=== PATIENT | male | born 1955 | race Caucasian/White ===

== ENCOUNTER → 2017-02-13 | Outpatient (CLI) | payer BC ==
--- NOTE | 2017-02-13 10:12 | REP ---
MAXILLOFACIAL CT WITHOUT CONTRAST: HISTORY: Chronic sinusitis. The uncinate processes are incompletely seen. This may be due to previous surgery or demineralization secondary to chronic sinusitis. Minimal mucosal thickening is present in the ethmoid, maxillary and left frontal sinuses. The remaining sinuses are clear. Mucosal thickening involves the ostiomeatal units. The middle and inferior nasal turbinates are partially paradoxical. There is mild deviation of the nasal septum to the right. The nasal septum abuts the right inferior nasal turbinate. The cribriform plate, medial serna of the orbits and optic canals are intact. The carotid canals form a segment of the posterolateral serna of the sphenoid sinus. IMPRESSION: Sinus mucosal thickening as described above. Signed by Dakota Sherman MD 02/13/2017 10:13 A
== END ==
LOC: M RAD 09:27
PROVIDERS: ATTEND Otolaryngology
DX: J32.4 Chronic pansinusitis (principal)

== ENCOUNTER → 2017-05-01 | Outpatient (CLI) | payer BC ==
--- NOTE | 2017-05-01 11:52 | REP ---
MR BRAIN WITHOUT AND WITH CONTRAST: HISTORY: Bilateral hearing loss. CONTRAST: ProHance 14 mL. Scattered punctate areas of increased signal intensity on T2-weighted images are present in the periventricular and subcortical white matter. This represents small vessel ischemic disease. There is no intraparenchymal hemorrhage, infarct, mass, or midline shift. There is no abnormal enhancement. The ventricular system is normal in appearance. There is no extracerebral collection. There is no cerebellopontine angle mass. The inner ear structures are normal in appearance. The mastoid air cells are clear. Minimal mucosal thickening is present in the maxillary sinuses. IMPRESSION: Minimal small vessel ischemic disease. Signed by Dakota Sherman MD 05/01/2017 12:02 P
== END ==
LOC: M RAD 09:14
PROVIDERS: ATTEND Otolaryngology
DX: H90.3 Sensorineural hearing loss, bilateral (principal); I67.89 Other cerebrovascular disease
CPT/HCPCS: 70553; A9576

== ENCOUNTER → 2022-10-29 | Outpatient (CLI) | payer MEDICARE ==
[~2022-10-29] MED LIST: ATOR1TAB19 PO; CAPE1TAB2 PO; LISI20TA33 PO; TAMS1CAP17 PO
== END ==
LOC: M ONCR 13:27
PROVIDERS: ATTEND Specialist
DX: C20 Malignant neoplasm of rectum (principal); F17.210 Nicotine dependence, cigarettes, uncomplicated; K58.9 Irritable bowel syndrome, unspecified; M19.90 Unspecified osteoarthritis, unspecified site; Z79.899 Other long term (current) drug therapy; Z80.0 Family history of malignant neoplasm of digestive organs; Z85.46 Personal history of malignant neoplasm of prostate; Z92.3 Personal history of irradiation

== ENCOUNTER → 2022-12-05 | Outpatient (RCR) | payer MEDICARE | LOC: M ONCR 11-10 10:18 | PROVIDERS: ATTEND General Practice | DX: C20 Malignant neoplasm of rectum (principal) ==

== ENCOUNTER 2022-12-31 09:38 | Outpatient (RCR) | payer MEDICARE ==
[~2022-12-31 09:38] MED LIST changes: +LIDO4CRE4 TOP
== END 2023-01-04 ==
LOC: M ONCR 09:38
PROVIDERS: ATTEND General Practice
DX: C20 Malignant neoplasm of rectum (principal)

== ENCOUNTER → 2023-01-12 | Outpatient (CLI) | payer MEDICARE ==
[~2023-01-12] VITALS: Ht 180.3 cm; Wt 64.0 kg
[~2023-01-12] MED LIST changes: +GINK60TA2 PO; +GINS100C PO; +LIDOCAINE 1% MDV 20ML VIAL As Ordered ONE; +MIDAZOLAM INJ 2MG/2ML VIAL As Ordered ONE; +NS 1,000 ML IV SCH; +OMEG10002 PO; +RA T500C2 PO; +VITA-243 PO; +VITAD400CA PO; +ZINC220CA PO; +ceFAZolin 2 GM/D5W 50 ML IV BAG As Ordered ONE; +ceFAZolin SOD 2 GM in IV 1 EA IV ONE; +diphenhydrAMINE 50MG/ML VIAL As Ordered ONE; +fentaNYL 100 MCG/2 ML INJECTION As Ordered ONE
[2023-01-12 16:05] VITALS: BP 136/78
== END ==
LOC: M IRPRO 12:24
PROVIDERS: ATTEND Internal Medicine Hematology & Oncology
DX: C20 Malignant neoplasm of rectum (principal)
CPT/HCPCS: 36561; 99152; 99153; C1769; C1788; C1894; J0690; J1200; J2250; J3010

== ENCOUNTER → 2023-01-27 | Outpatient (POV) | payer MEDICARE ==
[~2023-01-27] VITALS: Ht 182.9 cm; Wt 63.6 kg
[~2023-01-27] MED LIST changes: +LIDO1CRE42 TOP; -LIDOCAINE 1% MDV 20ML VIAL As Ordered ONE; -MIDAZOLAM INJ 2MG/2ML VIAL As Ordered ONE; -NS 1,000 ML IV SCH; +ONDA8TAB8 PO; +PROC10TA5 PO; +SAW1CAP3 PO; -ceFAZolin 2 GM/D5W 50 ML IV BAG As Ordered ONE; -ceFAZolin SOD 2 GM in IV 1 EA IV ONE; -diphenhydrAMINE 50MG/ML VIAL As Ordered ONE; -fentaNYL 100 MCG/2 ML INJECTION As Ordered ONE
[2023-01-27 13:45] VITALS: BP 141/81
== END ==
LOC: M IRPOV 13:33
PROVIDERS: ATTEND Radiology Diagnostic Radiology
DX: Z45.2 Encounter for adjustment and management of vascular access device (principal); Z88.1 Allergy status to other antibiotic agents

== ENCOUNTER → 2023-07-01 | Outpatient (CLI) | payer MEDICARE ==
[~2023-07-01] MED LIST changes: -LIDO1CRE42 TOP; +LIDO30CR18 TOP; +LISI10TA22 PO; +VITA250T7 PO
== END ==
LOC: M ONCR 09:28
PROVIDERS: ATTEND General Practice
DX: C20 Malignant neoplasm of rectum (principal); Z85.46 Personal history of malignant neoplasm of prostate; F17.210 Nicotine dependence, cigarettes, uncomplicated; Z71.2 Person consulting for explanation of examination or test findings; Z79.899 Other long term (current) drug therapy; Z88.1 Allergy status to other antibiotic agents; Z92.21 Personal history of antineoplastic chemotherapy; Z92.3 Personal history of irradiation

== ENCOUNTER → 2023-10-26 | Outpatient (CLI) | payer MEDICARE ==
[2023-10-26 14:57] LABS: BLOOD UREA NITROGEN 10 MG/DL (9-23); CREATININE FOR GFR 0.55 MG/DL (0.70-1.30); GLOMERULAR FILTRATION RATE > 60.0 (>49)
== END ==
LOC: M LAB 13:41
PROVIDERS: ATTEND Surgery
DX: C20 Malignant neoplasm of rectum (principal)

== ENCOUNTER → 2023-10-28 | Outpatient (CLI) | payer MEDICARE ==
[~2023-10-28] MED LIST changes: +GASTROGRAFIN SOLUTION 30ML As Ordered ONE; +ISOVUE-370 76% 100ML VIAL As Ordered ONE
== END ==
LOC: M RAD 13:38
PROVIDERS: ATTEND Surgery
DX: C20 Malignant neoplasm of rectum (principal)
CPT/HCPCS: 71260; 74177; Q9963; Q9967

== ENCOUNTER → 2023-10-30 | Outpatient (CLI) | payer MEDICARE ==
[~2023-10-30] MED LIST changes: -GASTROGRAFIN SOLUTION 30ML As Ordered ONE; -ISOVUE-370 76% 100ML VIAL As Ordered ONE
[2023-10-30 10:18] LABS: BLOOD UREA NITROGEN 9 MG/DL (9-23); CALCIUM LEVEL 8.7 MG/DL (8.3-10.6); CARBON DIOXIDE LEVEL 30 MMOL/L (20-31); CHLORIDE LEVEL 99 MMOL/L (98-107); CREATININE FOR GFR 0.57 MG/DL (0.70-1.30); GLOMERULAR FILTRATION RATE > 60.0 (>49); GLUCOSE, FASTING 101 MG/DL (74-106); MAGNESIUM LEVEL 1.9 MG/DL (1.8-2.4); PHOSPHORUS LEVEL 3.1 MG/DL (2.4-5.1); POTASSIUM SERUM 4.4 MMOL/L (3.5-5.1); SODIUM LEVEL 131 MMOL/L (136-145)
== END ==
LOC: M LAB 09:03
PROVIDERS: ATTEND Surgery
DX: C20 Malignant neoplasm of rectum (principal)

== ENCOUNTER → 2024-10-13 | Outpatient (CLI) | payer MEDICARE ==
[~2024-10-13] MED LIST changes: +ISOVUE-370 76% 100ML VIAL ONE; -LIDO4CRE4 TOP; +LIDO5CRE7 TOP; +ONDA-284 PO; -ONDA8TAB8 PO
== END ==
LOC: M PLAIMG 09:21
PROVIDERS: ATTEND Surgery
DX: K43.9 Ventral hernia without obstruction or gangrene (principal)
CPT/HCPCS: 74177; Q9967

== ENCOUNTER → 2025-01-04 | Outpatient (CLI) | payer MEDICARE ==
[~2025-01-04] MED LIST changes: +SAW160CA22 PO; -SAW1CAP3 PO
== END ==
LOC: M PLAIMG 08:26
PROVIDERS: ATTEND Nurse Practitioner Family
DX: C20 Malignant neoplasm of rectum (principal)
CPT/HCPCS: 71260; 74177; Q9967

== ENCOUNTER 2025-03-23 06:12 | Inpatient (IN) | payer MEDICARE ==
[~2025-03-23] VITALS: Ht 180.3 cm; Wt 76.5 kg
[~2025-03-23 06:12] MED LIST changes: +ACET32TAB PO; +ELIQ5TAB PO; -ISOVUE-370 76% 100ML VIAL ONE; +METO25TA4 PO; -RA T500C2 PO; +ROSU5TAB49 PO; +TURM500C10 PO
[2025-03-23] MEDS ORDERED: LIDOCAINE 2% 100 MG/5 ML SDV (FOR ANES.) As Ordered ONE (07:16)
[2025-03-23] MEDS ORDERED: ROCURONIUM BROMIDE 50MG/5ML VIAL As Ordered ONE (07:16)
[2025-03-23] MEDS ORDERED: MIDAZOLAM INJ 2 MG/2 ML VIAL As Ordered ONE (07:16)
[2025-03-23] MEDS: ceFAZolin SOD 2 GM IV ONCE IV ONE (08:01)
[2025-03-23] MEDS ORDERED: dexAMETHasone 4 MG/ML 1 ML VIAL As Ordered ONE (08:01)
[2025-03-23] MEDS ORDERED: PHENYLephrine 500MCG 5ML (100MCG/ML) SYRINGE As Ordered ONE (08:03)
[2025-03-23] MEDS ORDERED: HYDROmorphone HCL 2 MG/ML 1 ML VIAL As Ordered ONE (09:31)
[2025-03-23] MEDS ORDERED: ACETAMINOPHEN 1000MG/100ML IV BAG As Ordered ONE (09:49)
[2025-03-23] MEDS ORDERED: ACET-683 PO (09:58)
[2025-03-23] MEDS ORDERED: HOME MED LIST COMPLETE! XX SCH (10:00)
[2025-03-23] MEDS ORDERED: PHENYLEPHRINE 10MG/ML 1ML VIAL As Ordered ONE (10:14)
[2025-03-23] MEDS ORDERED: ONDANSETRON 4MG 2ML VIAL As Ordered ONE (12:00)
[2025-03-23] MEDS ORDERED: SUGAMMADEX SODIUM 200 MG/2 ML VIAL As Ordered ONE (14:28)
[2025-03-23] MEDS: ONDANSETRON 4MG 2ML VIAL IV PRN (16:08)
[2025-03-23] MEDS ORDERED: diphenhydrAMINE 50 MG/ML VIAL IV PRN (16:25)
[2025-03-23] MEDS ORDERED: MEPERIDINE 25 MG/ML 1 ML VIAL IV PRN (16:25)
[2025-03-23] MEDS ORDERED: ONDANSETRON 4MG 2ML VIAL IV PRN (16:40)
[2025-03-23] MEDS ORDERED: KETOROLAC 30 MG/ML 1 ML VIAL IV PRN (16:40)
[2025-03-23] MEDS ORDERED: MORPHINE 2 MG/ML 1 ML VIAL IV PRN (16:40)
[2025-03-23] MEDS: hydrALAZINE 20 MG/ML 1 ML VIAL IV PRN (17:01)
[2025-03-23] MEDS: KCL 20MEQ IN D5/0.45NS 1000ML 1,000 ML IV SCH (17:25)
[2025-03-23] MEDS: MORPHINE 2 MG/ML 1 ML VIAL IV ONE (18:04)
[2025-03-23 18:06] LABS: BASO # 0.0 10^3/uL (0.0-0.2); BASO % 0.3 % (0.0-1.0); EOS # 0.0 10^3/uL (0.0-0.5); EOS % 0.1 % (0.0-3.0); LYMPH # 0.7 10^3/uL (1.5-5.0); LYMPH % 6.0 % (24.0-44.0); MONO # 0.6 10^3/uL (0.0-0.8); MONO % 4.9 % (2.0-8.0); NEUTROPHILS # 10.1 10^3/uL (1.5-8.5); NEUTROPHILS % 88.2 % (36.0-66.0); PLATELET COUNT, AUTOMATED 219 10^3/uL (150-450)
[2025-03-23 18:15] VITALS: BP 151/71; TEMP 97.7; O2SAT 87
[2025-03-23 18:33] LABS: CALCIUM LEVEL 8.3 MG/DL (8.3-10.6); CARBON DIOXIDE LEVEL 27 MMOL/L (20-31); CHLORIDE LEVEL 102 MMOL/L (98-107); CREATININE FOR GFR 0.65 MG/DL (0.70-1.30); GLOMERULAR FILTRATION RATE > 90.0 (>42); POTASSIUM SERUM 4.9 MMOL/L (3.5-5.1); SODIUM LEVEL 139 MMOL/L (136-145)
[2025-03-23 18:45] VITALS: BP 117/68; TEMP 97.7; O2SAT 92
[2025-03-23 21:15] VITALS: BP 124/58; TEMP 98.1; O2SAT 92
[2025-03-23] MEDS: METOPROLOL TART 25 MG TABLET PO SCH (21:23)
[2025-03-23] MEDS: DOCUSATE SODIUM 100 MG CAPSULE PO SCH (21:23)
[2025-03-23 22:15] VITALS: BP 127/61; TEMP 98; O2SAT 93
[2025-03-23] MEDS: RAMELTEON 8 MG TAB PO PRN (22:20)
[2025-03-23] MEDS: ACETAMINOPHEN 500 MG TAB PO PRN (22:20)
[2025-03-23 23:15] VITALS: BP 127/59; TEMP 98.1; O2SAT 95
[2025-03-24] VITALS (10 sets, daily range): BP systolic 115–137; BP diastolic 59–79; TEMP 97.9–98.6; O2SAT 92–96
[2025-03-24] MEDS: PANTOPRAZOLE 40MG TAB PO SCH (08:23)
[2025-03-24] MEDS: TAMSULOSIN 0.4 MG CAP PO SCH (08:24)
[2025-03-24] MEDS: ASCORBIC ACID 500 MG TAB PO SCH (08:24)
[2025-03-24] MEDS: PERCOCET 5MG/325MG TAB PO ONE (10:12)
[2025-03-24] MEDS: APIXABAN 5 MG TAB PO SCH (10:22)
[2025-03-24] MEDS ORDERED: FUROSEMIDE 40 MG/4 ML VIAL IV ONE (10:35)
[2025-03-24] MEDS ORDERED: IPRATROPIUM 0.5 MG/ALBUTEROL 2.5 MG INH SOL UD 3 ML NEB PRN (10:35)
[2025-03-24] MEDS: IPRATROPIUM 0.5 MG/ALBUTEROL 2.5 MG INH SOL UD 3 ML NEB ONE (11:32)
[2025-03-24] MEDS: ZINC SULFATE 220 MG CAP PO SCH (11:35)
[2025-03-24] MEDS: metOLazone 2.5 MG TAB PO ONE (11:37)
[2025-03-24] MEDS: FUROSEMIDE 40 MG/4 ML VIAL IV ONE (12:18)
[2025-03-24] MEDS: FUROSEMIDE 20 MG/2 ML VIAL IV ONE (21:44)
[2025-03-25] VITALS (12 sets, daily range): BP systolic 139–154; BP diastolic 79–86; TEMP 97.9–98.1; O2SAT 86–94
[2025-03-25] MEDS: CALCIUM CARBONATE 500 MG CHEW U/D PO PRN (18:25)
[2025-03-26 00:05] VITALS: BP 158/82; TEMP 98.3; O2SAT 91
[2025-03-26 04:45] VITALS: BP 144/82; TEMP 97.5; O2SAT 92
[2025-03-26 05:31] LABS: PLATELET COUNT, AUTOMATED 268 10^3/uL (150-450)
[2025-03-26 05:59] LABS: CALCIUM LEVEL 9.5 MG/DL (8.3-10.6); CARBON DIOXIDE LEVEL 30 MMOL/L (20-31); CHLORIDE LEVEL 93 MMOL/L (98-107); CREATININE FOR GFR 0.61 MG/DL (0.70-1.30); GLOMERULAR FILTRATION RATE > 90.0 (>42); POTASSIUM SERUM 4.3 MMOL/L (3.5-5.1); SODIUM LEVEL 135 MMOL/L (136-145)
[2025-03-26 07:18] VITALS: BP 150/78; TEMP 97.5; O2SAT 90
[2025-03-26 08:52] VITALS: BP 150/90; O2SAT 90
== END 2025-03-26 11:03 | disposition home or self-care (01) | DRG 354 ==
LOC: M OR 06:12 → M MSPAV 18:20
PROVIDERS: ADMIT Surgery; ATTEND Surgery
PROC: 8E0W4CZ Robotic Assisted Procedure of Trunk Region, Percutaneous Endoscopic Approach (ICD-10-PCS; 2025-03-23)
PROC: 0JPT03Z Removal of Infusion Device from Trunk Subcutaneous Tissue and Fascia, Open Approach (ICD-10-PCS; 2025-03-23)
PROC: 0WUF4JZ Supplement Abdominal Wall with Synthetic Substitute, Percutaneous Endoscopic Approach (ICD-10-PCS; principal; 2025-03-23 07:30)
DX: K43.9 Ventral hernia without obstruction or gangrene (principal); I48.21 Permanent atrial fibrillation; I10 Essential (primary) hypertension; J32.9 Chronic sinusitis, unspecified; J44.9 Chronic obstructive pulmonary disease, unspecified; F17.200 Nicotine dependence, unspecified, uncomplicated; K58.9 Irritable bowel syndrome, unspecified; K40.20 Bilateral inguinal hernia, without obstruction or gangrene, not specified as recurrent; E78.00 Pure hypercholesterolemia, unspecified; E55.9 Vitamin D deficiency, unspecified; Z90.49 Acquired absence of other specified parts of digestive tract; Z79.01 Long term (current) use of anticoagulants; Z79.899 Other long term (current) drug therapy; Z88.1 Allergy status to other antibiotic agents; Z85.46 Personal history of malignant neoplasm of prostate; Z85.038 Personal history of other malignant neoplasm of large intestine

== ENCOUNTER → 2025-07-10 | Outpatient (CLI) | payer MEDICARE ==
[~2025-07-10] MED LIST changes: +ACET-683 PO; +CYAN250T5 PO; +ISOVUE-370 76% 100 ML VIAL As Ordered ONE; -VITA250T7 PO
== END ==
LOC: M RAD 10:48
PROVIDERS: ATTEND Nurse Practitioner Family
DX: C20 Malignant neoplasm of rectum (principal); K76.89 Other specified diseases of liver; Z90.49 Acquired absence of other specified parts of digestive tract; N28.1 Cyst of kidney, acquired; K57.90 Diverticulosis of intestine, part unspecified, without perforation or abscess without bleeding; K40.20 Bilateral inguinal hernia, without obstruction or gangrene, not specified as recurrent; K42.9 Umbilical hernia without obstruction or gangrene; I70.0 Atherosclerosis of aorta; J43.9 Emphysema, unspecified; I25.10 Atherosclerotic heart disease of native coronary artery without angina pectoris; J84.10 Pulmonary fibrosis, unspecified
CPT/HCPCS: 71260; 74177; Q9967